=== PATIENT | male | born 1965 | race Caucasian/White ===

== ENCOUNTER → 2019-04-05 | Outpatient (CLI) | payer BC ==
--- NOTE | 2019-04-05 15:59 | PCVCIMAG ---
APPROVED REPORT Study performed: 04/05/2019 14:42:45 Exam: Stress Echocardiogram Indication: htn, hlp, fam hx cad, hx prior tobacco use Patient Location: Echo lab Stress Nurse: Maricel Forrester RN Status: routine Ht: 5 ft 11 in HR: 97 bpm BP: 138/80 mmHg Rhythm: Tachycardia Procedure The patient underwent an Exercise Stress Test using the Santiago Protocol. Blood pressure, heart rate, and EKG were monitored. An Echocardiogram was performed by emergency medical technician basic in four stages in quad fashion. At peak stress, four selected images were obtained and placed side by side with resting images for comparison. Stress Test Details Stress Test: Exercise stress testing was performed using a Santiago protocol. HR Resting HR: 97 bpmMax Heart Rate (APMHR): 166 bpm Max HR Achieved: 162 bpmTarget HR (85% APMHR): 141 bpm % of APMHR: 97 Recovery HR: 109 bpm HR response to stress: Normal HR response to stress BP Resting BP: 138/80 mmHg Max BP: 170/80 mmHg Recovery BP: 140/76 mmHg BP response to stress: Normal blood pressure response to stress. ECG Resting ECG: Sinus Rhythm Stress ECG: Sinus Rhythm ST Change: Normal Maximum ST Deviation: 0 mm Arrhythmia: PVC Recovery ECG: Sinus Rhythm Recovery ST Change: Normal Recovery ST Deviation: 0 mm Recovery Arrhythmia: None Clinical Reason for Termination: Maximal effort Stress Symptoms: knee pain Exercise duration: 7 min 13 sec Highest Stage Achieved: Stage 3: 3.4 mph at 14% grade. Exercise capacity: 10.1 METs Overall Exercise Capacity for Age: Normal Scale: Active Angina Score: None Stress ECG Conclusion ECG: Non-ischemic Clinical: Non-ischemic [place] Treadmill Score is 7.0 which is Low risk. Pre-Stress Echo The resting Echocardiogram showed normal left ventricular contractility with an estimated Ejection Fraction of about >55%. Normal wall motion in all segments on baseline images. Post-Stress Echo The stress Echocardiogram showed normal left ventricular contractility with an estimated Ejection Fraction of about 65%. Normal augmentation of wall motion in all segments on post stress images. Clinical No clinical or ECG evidence for ischemia. Conclusion Clinical Response: Non-ischemic Exercise Capacity: Average Stress ECG Response: Non-ischemic Stress Echo Images: Non-ischemic The left ventricle is normal in size and wall thickness in both the rest and stress images. Normal stress echocardiogram with maximal exercise stress. Other Information Study Quality: Adequate <Conclusion> The left ventricle is normal in size and wall thickness in both the rest and stress images. Normal stress echocardiogram with maximal exercise stress.
== END | disposition home or self-care (01) ==
LOC: PCVCIMAG 14:38
PROVIDERS: ATTEND Internal Medicine
DX: I10 Essential (primary) hypertension (principal); F17.200 Nicotine dependence, unspecified, uncomplicated; E78.5 Hyperlipidemia, unspecified; Z82.49 Family history of ischemic heart disease and other diseases of the circulatory system; Z88.0 Allergy status to penicillin
CPT/HCPCS: 93325; 93351